=== PATIENT | female | born 1995 | race Caucasian/White ===

== ENCOUNTER 2022-03-08 18:48 | Emergency (ER) | payer OTHER ==
[~2022-03-08] VITALS: Ht 157.4 cm; Wt 106.6 kg
[2022-03-08] MEDS ORDERED: NAPROSYN500 MG PO (22:03)
[2022-03-08] MEDS ORDERED: CYCLOBENZAPRINE10 MG PO (22:03)
== END 2022-03-08 22:40 | disposition home or self-care (01) ==
LOC: ED 18:48
DX: S46.911A Strain of unspecified muscle, fascia and tendon at shoulder and upper arm level, right arm, initial encounter (principal); F17.200 Nicotine dependence, unspecified, uncomplicated; X50.0XXA Overexertion from strenuous movement or load, initial encounter; Y93.89 Activity, other specified; Y92.69 Other specified industrial and construction area as the place of occurrence of the external cause; Y99.9 Unspecified external cause status

== ENCOUNTER 2022-05-29 20:12 | Emergency (ER) | payer OTHER ==
[~2022-05-29] VITALS: Ht 157.4 cm; Wt 90.7 kg
[~2022-05-29 20:12] MED LIST: CYCLOBENZAPRINE10 MG PO; NAPROSYN500 MG PO
[2022-05-29 20:47] LABS: BASO % 0.4 % (0.0-1.0); EOS # 0.1 10*3/uL (0.0-0.4); EOS % 1.3 % (1.0-4.0); HEMATOCRIT 45.4 % (37.0-47.0); LYMPH # 2.5 10*3/uL (1.3-4.4); LYMPH % 29.2 % (27.0-41.0); MEAN CELL VOLUME 90.4 fl (81.0-99.0); MEAN CORPUSCULAR HGB 30.7 pg (27.0-31.0); MEAN CORPUSCULAR HGB CONC 33.9 g/dl (33.0-37.0); MEAN PLATELET VOLUME 11.2 fl (9.6-12.3); MONO # 0.6 10*3/uL (0.1-1.0); MONO % 7.3 % (3.0-9.0); NEUT # 5.3 10*3/uL (2.3-7.9); NEUT % 61.6 % (47.0-73.0); PLATELET COUNT AUTOMATED 235 10*3/uL (130-400); RED BLOOD COUNT 5.02 10*6/uL (4.10-5.10); RED CELL DISTRI WIDTH 12.3 % (0-14.5); WHITE BLOOD COUNT 8.6 10*3/uL (4.8-10.8)
[2022-05-29 21:01] LABS: BILIRUBIN Negative (Negative); BLOOD Negative (Negative); CLARITY Cloudy (Clear); COLOR Yellow (Yellow); GLUCOSE Negative (Negative); KETONE Negative (Negative); LEUKO ESTERASE Trace (Negative); NITRITE Negative (Negative); PH 6.5 (4.5-8.0); SPECIFIC GRAVITY 1.025 (1.001-1.030); UROBILINOGEN 0.2 E.U./dl (0.0-1.0)
[2022-05-29 21:02] LABS: ALKALINE PHOSPHATASE 65 U/L (46-116); BUN 14 mg/dl (9-23); CHLORIDE 107 mmol/L (98-107); LIPASE 43 U/L (12-53); POTASSIUM 3.6 mmol/L (3.4-5.1); SGPT/ALT 25 U/L (10-49); TOTAL PROTEIN 8.1 gm/dL (6.0-8.0)
[2022-05-29 21:13] LABS: BACTERIA 1+; EPITHELIAL CELLS 0-2
== END 2022-05-29 21:45 | disposition home or self-care (01) ==
LOC: ED 20:12
PROVIDERS: Internal Medicine
DX: R10.33 Periumbilical pain (principal); R10.30 Lower abdominal pain, unspecified

== ENCOUNTER 2023-03-17 17:07 | Emergency (ER) | payer SELFPAY ==
[~2023-03-17] VITALS: Ht 157.4 cm; Wt 88.5 kg
[2023-03-17 18:44] LABS: HEMATOCRIT 41.8 % (37.0-47.0); MEAN CELL VOLUME 92.7 fl (81.0-99.0); MEAN CORPUSCULAR HGB 30.8 pg (27.0-31.0); MEAN CORPUSCULAR HGB CONC 33.3 g/dl (33.0-37.0); MEAN PLATELET VOLUME 11.7 fl (9.6-12.3); PLATELET COUNT AUTOMATED 159 10*3/uL (130-400); RED BLOOD COUNT 4.51 10*6/uL (4.10-5.10); RED CELL DISTRI WIDTH 12.4 % (0-14.5); WHITE BLOOD COUNT 8.5 10*3/uL (4.8-10.8)
[2023-03-17 18:49] LABS: MANUAL DIFF REFLEX YES
[2023-03-17 19:02] LABS: TOTAL CELLS COUNTED 100 #CELLS
[2023-03-17 19:03] LABS: PLATELET SUFFICIENCY NORMAL (NORMAL)
[2023-03-17 19:14] LABS: ALKALINE PHOSPHATASE 58 U/L (46-116); BUN 6 mg/dl (9-23); CHLORIDE 106 mmol/L (98-107); POTASSIUM 3.7 mmol/L (3.4-5.1); SGPT/ALT 28 U/L (5-49); TOTAL PROTEIN 7.1 gm/dL (6.0-8.0)
[2023-03-17 19:15] LABS: BILIRUBIN Negative (Negative); BLOOD Negative (Negative); CLARITY Clear (Clear); COLOR Yellow (Yellow); GLUCOSE Negative (Negative); KETONE Negative (Negative); LEUKO ESTERASE Trace (Negative); NITRITE Negative (Negative); PH 6.5 (4.5-8.0); SPECIFIC GRAVITY 1.015 (1.001-1.030); UROBILINOGEN 0.2 E.U./dl (0.0-1.0)
[2023-03-17 19:20] LABS: BACTERIA 1+; MUCOUS 1+; RBC 0-2 rbc/hpf (0-2)
[2023-03-17] MEDS ORDERED: AMOXICILLIN500 M2 PO (19:24)
== END 2023-03-17 19:29 | disposition home or self-care (01) ==
LOC: ED 17:07
PROVIDERS: Physician Assistant Medical
DX: O23.41 Unspecified infection of urinary tract in pregnancy, first trimester (principal); N39.0 Urinary tract infection, site not specified; Z3A.01 Less than 8 weeks gestation of pregnancy

== ENCOUNTER 2024-04-12 17:44 | Emergency (ER) | payer SELFPAY ==
[~2024-04-12] VITALS: Ht 157.4 cm; Wt 113.4 kg
[~2024-04-12 17:44] MED LIST changes: +AMOXICILLIN500 M2 PO
== END 2024-04-12 18:14 | disposition home or self-care (01) ==
LOC: ED 17:44
DX: S93.401A Sprain of unspecified ligament of right ankle, initial encounter (principal); X50.1XXA Overexertion from prolonged static or awkward postures, initial encounter; Y93.89 Activity, other specified; Y92.009 Unspecified place in unspecified non-institutional (private) residence as the place of occurrence of the external cause; Y99.8 Other external cause status

== ENCOUNTER 2024-05-28 18:16 | Emergency (ER) | payer SELFPAY | END 2024-05-28 20:49 | disposition home or self-care (01) | LOC: ED 18:16 | DX: S09.8XXA Other specified injuries of head, initial encounter (principal); M54.2 Cervicalgia; W00.0XXA Fall on same level due to ice and snow, initial encounter; Y93.01 Activity, walking, marching and hiking; Y92.89 Other specified places as the place of occurrence of the external cause; Y99.8 Other external cause status ==

== ENCOUNTER 2024-08-01 19:44 | Emergency (ER) | payer SELFPAY ==
[~2024-08-01] VITALS: Ht 157.4 cm; Wt 111.1 kg
[2024-08-01] MEDS ORDERED: NAPROSYN500 MG PO (20:24)
[2024-08-01] MEDS ORDERED: Ketorolac Tromethamine 60 MG/2 ML VIAL IM ONE (20:25)
== END 2024-08-01 20:43 | disposition home or self-care (01) ==
LOC: ED 19:44
DX: S60.222A Contusion of left hand, initial encounter (principal); W22.8XXA Striking against or struck by other objects, initial encounter; Y93.89 Activity, other specified; Y92.89 Other specified places as the place of occurrence of the external cause; Y99.8 Other external cause status